=== PATIENT | male | born 1930 | race Caucasian/White ===

== ENCOUNTER 2018-08-07 08:34 | Inpatient (IN) | payer MEDICARE, OTHER ==
[~2018-08-07] VITALS: Ht 188 cm; Wt 117.8 kg
[~2018-08-07 08:34] MED LIST: ALEVE220 MG PO; BAYER CHEWABLE81 MG PO; CRESTOR5 MG PO; HYTRIN5 MG PO; MAXZIDE-25 MG T1 TAB PO
[2018-08-07] MEDS ORDERED: ZYLOPRIM300 MG PO (08:45)
[2018-08-07] MEDS ORDERED: METHENAMINE MA500 MG PO (08:46)
[2018-08-07] MEDS ORDERED: CO Q-10150 MG PO (08:46)
[2018-08-07] MEDS ORDERED: [UNRECOGNIZED DRUG - OTHER] PO (08:48)
[2018-08-07 09:31] VITALS: BP 122/74
[2018-08-07 09:44] LABS: APTT 33.8 SECONDS (22.8-39.4); INR 1.09 (0.85-1.17); PROTIME 13.6 SECONDS (11.6-15.0)
[2018-08-07 09:49] LABS: ALBUMIN 3.7 g/dL (3.4-5.0); ANION GAP 13.3 mmol/L (8-16); BILIRUBIN - TOTAL 0.59 mg/dL (0.2-1.3); CALCIUM 8.9 mg/dL (8.5-10.1); CARBON DIOXIDE 26.2 mmol/L (21.0-32.0); CREATININE - SERUM 1.3 mg/dL (0.6-1.3); POTASSIUM - SERUM 3.5 mmol/L (3.5-5.1); PROTEIN - SERUM 7.8 g/dL (6.4-8.2)
[2018-08-07 09:57] LABS: BASOPHILS 0.3 % (0-2); EOSINOPHILS 3.2 % (0-7); HEMATOCRIT 43.2 % (42.0-54.0); HEMOGLOBIN 14.7 g/dL (13.5-17.5); IMMATURE GRANULOCYTES 0.4 % (0-5); LYMPHOCYTES 11.1 % (15-50); MCH 30.6 pg (26.0-34.0); MCV 89.8 fL (80.0-100.0); MONOCYTES 11.4 % (2-11); NEUTROPHILS 73.6 % (40-80); RBC 4.81 10x6/uL (4.20-6.10); RDW 16.4 % (11.5-14.5); WBC 6.9 10x3/uL (4.8-10.8)
[2018-08-07 09:59] LABS: C-REACTIVE PROTEIN 2.4 mg/dL (0.0-0.9); MAGNESIUM - SERUM 2.1 mg/dL (1.8-2.4); PLATELET COUNT 63 10x3/uL (130-400); THYROID STIMULATING HORMONE 2.46 uIU/mL (0.36-3.74); TROPONIN-I 0.027 ng/mL (0.000-0.060)
--- NOTE | 2018-08-07 10:05 | NUR ---
URINE SAMPLE SENT TO THE LAB AT THIS TIME.
[2018-08-07 10:25] LABS: ANISOCYTOSIS OCC; PLATELET ESTIMATE DECREASED
[2018-08-07 10:30] LABS: APPEARANCE CLEAR (CLEAR); BILIRUBIN NEGATIVE (NEGATIVE); COLOR YELLOW (YELLOW); GLUCOSE NEGATIVE (NEGATIVE); KETONE NEGATIVE (NEGATIVE); NITRITE NEGATIVE (NEGATIVE); PROTEIN NEGATIVE (NEGATIVE); SPECIFIC GRAVITY 1.015 (1.005-1.020); UROBILINOGEN NORMAL (NORMAL)
--- NOTE | 2018-08-07 11:03 | NUR ---
PT ASSISTED WITH GHISLAINE-CARE AND CLOTHING CHANGE FOLLOWING EPISODE OF URINARY INCONTINENCE. PER PT'S , PT IS TYPICALLY NOT INCONTINENT.
[2018-08-07 11:07] VITALS: BP 147/77
--- NOTE | 2018-08-07 11:56 | NUR ---
PT GIVEN AHA LUNCH TRAY PER DIETARY ORDERS. SITTING UPRIGHT IN BED EATING. DENIES ANY NEEDS. FAMILY MEMBER AT BEDSIDE AND CALL LIGHT IN REACH, WILL CONTINUE TO MONITOR.
[2018-08-07 13:52] LABS: T4 THYROXIN - FREE 0.99 ng/dL (0.76-1.46); THYROID STIMULATING HORMONE 2.4 uIU/mL (0.36-3.74)
[2018-08-07 15:22] VITALS: BP 114/73
--- NOTE | 2018-08-07 15:45 | NUR ---
NEW PATIENT ADMIT FROM ER VIA STRETCHER AND HOSPITAL PERSONNEL. PATIENT ACCOMPANIED BY FAMILY. PATIENT IS AWAKE, ALERT AND ORIENTED X 3. PATIENT IS STABLE AND VSS. TELEMETRY APPLIED. PATIENT DENIES ANY NEEDS OR PAIN. WILL CONTINUE WITH PLAN OF CARE.
[2018-08-07 18:34] VITALS: BP 114/73; BMI 34.0
--- NOTE | 2018-08-07 19:46 | NUR ---
PT RESTING IN BED. BEDLOW AND CALL LIGHT IN REACH. PT SITTING WITH MOUTH OPEN. MOUTH BREATHER. PT ALERT TO NAME AND , HAS CONFUSION OF PLACE AND YEAR. SAID HE KNOWS WHERE HE IS BUT CANNOT THINK OF THE NAME, REORIENTED PT WILL CHECK ORIENTATION AGAIN TO SEE IF PT REMEMBERS. PT HAS NO S/S OF DISTRESS. PT UNABLE TO TELL NURSE HOW TO GET AHOLD OF NURSES. DEMONSTRATED TO PT. PT DEMONSTRATED BACK. PLACED ALARM ON BED, NAME AND DATE ON BOARD. PT WILL CALL FOR ASSIST WHEN NEEDED. WILL CPOC
[2018-08-07 20:00] VITALS: BP 126/75
--- NOTE | 2018-08-07 22:22 | NUR ---
NIGHT MEDICATIONS GIVEN. NORCO GIVEN FOR PAIN, PT STATES INCREASES WHEN MOVING. PT STILL ALERT TO NAME AND ONLY. UNABLE TO TELL PLACE OR YEAR. PT LEANING TO THE RIGHT. HAS SEVERE WEAKNESS. ABLE TO LIFT RIGHT LEG A COUPLE INCHES OFF OF BED. KEEPS MOUTH OPEN RIGHT SIDE OF MOUTH HAS NOTED SAGGING. PT COULD NOT TELL NURSE HOW TO CALL FOR ASSIST. ATTEMPTED TO REORIENTATE ONCE AGAIN. BED ALARM ON AND ACTIVE. NOURISHMENT WITHIN REACH. ASSISTED WITH REPOSITIONING IN BED. WILL CPOC
--- NOTE | 2018-08-08 01:02 | NUR ---
PT ASLEEP. RESP EVEN AND UNLABORED. MOUTH BREATHER, PILLOWS ON BOTH SIDES OF PT, HEELS RAISED. BEDLOW AND CALL LIGHT IN REACH. BED ALARM ON AND ACTIVE. WILL CPOC
--- NOTE | 2018-08-08 02:59 | NUR ---
NORCO GIVEN FOR BACK PAIN. ASSISTED WITH REPOSITIONING IN BED. PT BEDALARM ON AND ACTIVE. WILL CPOC
--- NOTE | 2018-08-08 04:06 | NUR ---
PT BED ALARM WENT OFF, PT SITTING ON SIDE OF BED. PT STATING HE NEEDS TO URINATE. ASSISTED PT WITH URINATING 225 DARK CLEAR URINE. CLEANED PT INCONT EPISODE LARGE AMOUNT, CHANGED PT INTO DRY GOWN. ASSISTED PT WITH 2 PERSON ASSIST TO HEAD OF BED, SEVERE WEAKNESS IN LOWER EXTREM. GAIT UNSTEADY. LEFT FOOT DID NOT RAISE UP FOR STEPS , PT BACK INTO BED. REORIENTED ON HOW TO CALL NURSES. PLACED BED ALARM ON, BEDLOW AND CALL LIGHT IN REACH. NOURISHMENT WITHIN REACH. WILL CPOC
[2018-08-08 04:30] VITALS: BP 131/68
--- NOTE | 2018-08-08 07:18 | HP ---
PATIENT: NICK GUNDERSON MEDICAL RECORD: [id number] ACCOUNT: [id number] LOCATION:[address] : 34 ADMISSION DATE: 08/07/18 PCP: TONA ISAAC MD HISTORY AND PHYSICAL EXAMINATION REASON FOR ADMISSION: Low back pain, leg weakness, and inability to walk. HISTORY OF PRESENT ILLNESS: The patient is an 88-year-old male with history of lumbar scoliosis and lumbar disc disease. Due to osteoarthritis and knee replacements, he has been relegated to a wheelchair and a walker for ambulation for the last several years. His daughter states that he was too much to care for at home, and on May 16, transferred to [facility]. He has been taking care of himself there, performing most of his ADLs. He states that, about 2 days ago, he had increasing trouble with his low back pain and more trouble with his lower legs. In fact, for the last 2 nights, he has had to lay in the bed with his legs over the side of the bed and unable to raise them. He has had no new bowel or bladder incontinence or retention. Because he is unable to ambulate, he was brought to the ED. He had a fall 2 months ago at [facility], but incurred no injury to his knowledge. He states his low back hurts lying down or sitting up and the pain will radiate into his buttocks and upper thighs and his thighs feel weak. PAST MEDICAL HISTORY: Osteoarthritis, morbid obesity, essential hypertension, hyperlipidemia, BPH, history of gout, history of shingles, had UTI with sepsis, varicose veins of the lower extremities, and hematuria with cystoscopy performed showing benign ulcer in his bladder. History of kidney stones, history of CAD with failed PTCA, history of MRSA, cataracts, mild cognitive impairment, and remote lacunar infarct. PAST SURGICAL HISTORY: Right carpal tunnel release, rods placed in his left foot due to fracture, cataract extraction bilaterally, history of heart cath with failed PTCA, and tonsillectomy. He has had bilateral knee replacements. He has had cystoscopy and bilateral retrogrades. SOCIAL HISTORY: Former smoker of one pack a day for 20 years. He has not smoked since 1977. Denies alcohol or oral tobacco use. FAMILY HISTORY: Father of heart disease. One sister had diphtheria and hyperlipidemia. HOME MEDICATIONS: Dyazide one q.a.m., Lamisil AT 1% topical cream to groin rash daily, methenamine mandelate 0.5 gram tablet one tablet by mouth 2 times a day, Ocuvite Vitamin one p.o. daily, aspirin 81 mg a day, CoQ10 100 mg a day, terazosin 5 mg capsule at bedtime, allopurinol 300 mg a day, Aleve 200 mg p.o. b.i.d. p.c. REVIEW OF SYSTEMS: GENERAL: No recent fever, fatigue, or weight change. HEENT: No recent visual change, sinus congestion, or sore throat. He does wear glasses to read and has some trouble with his hearing. RESPIRATORY: He has mild shortness of breath when he exerts himself little. He has had no recent cough, congestion, or hemoptysis. CARDIAC: Denies palpitations, chest pain, or peripheral vascular issues. GASTROINTESTINAL: No nausea, vomiting, change in stools, blood per rectum, or reflux. HISTORY AND PHYSICAL [id number] NICK GUNDERSON GENITOURINARY: Nocturia once nightly and slow voiding stream. No recent hematuria. MUSCULOSKELETAL: He has chronic arthralgias in his knees and hips, particularly his lumbar spine with standing or lying flat, will radiate into his buttocks and upper thighs bilaterally. ENDOCRINE: Denies polyuria, polydipsia, heat or cold intolerance. NEUROLOGIC: Remote history of lacunar infarct in the right basal ganglia. PSYCHIATRIC: Denies depression and anxiety. INTEGUMENT: No recent rash or itching. PHYSICAL EXAMINATION: VITAL SIGNS: His temperature is 97.5 degrees Fahrenheit orally, pulse is 52-100 and regular, respirations are 18, and blood pressure 139/72 with sat of 93% on room air. GENERAL: The patient is alert and oriented to person and place, but not time. HEENT: Eyes are clear. He has lens implants in both eyes. Oropharynx unremarkable. NECK: No bruits or masses. CHEST: Distant breath sounds without wheeze or rales. HEART: Irregular rate without gallop. He has II/ aortic murmur systolically. ABDOMEN: Morbidly obese. No masses palpable. GENITOURINARY: Shows rash in the groin bilaterally, in the crural areas. RECTAL: Deferred. EXTREMITIES: He has some slight atrophy of his quadriceps bilaterally. He has 2+ to 3+ pretibial edema to the knees bilaterally. NEUROLOGIC: Oriented to person and place, but not time. Slight decrease to quadriceps flexion bilaterally. Reflexes 1+ symmetrically. Gait was not tested. Straight leg raise is negative bilaterally. LABORATORIES: White count 6900 with H&H of 14.7 and 43.2 and platelet count 63,000. Potassium is 3.5, BUN is 31, creatinine 1.3, glucose 108, and lipase 873. Urinalysis is negative. INR is 1.09. DIAGNOSTIC DATA: CT of the head reveals old right lacunar infarct. No evidence of hemorrhage. Severe cerebral volume loss with enlarged ventricles and sulci. No fractures are appreciated. Lumbar spine CT showed anterior wedging of T11 through L2, old. Atherosclerotic changes of abdominal aorta and iliac arteries. 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 Multilevel degenerative changes are seen throughout the lumbar spine with [id number] spinal canal narrowing and neuroforaminal narrowing. Chest x-ray shows no acute cardiopulmonary disease. EKG shows atrial fibrillation with controlled rate. ASSESSMENT: 1. 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 2. Gait instability and abnormality. 3. Quadriceps weakness, probably due to lumbar stenosis. 4. Atrial fibrillation, unknown onset. 5. Osteoarthritis. 6. Dementia. 7. Remote lacunar infarct. 8. Hyperlipidemia. 9. Thrombocytopenia. HISTORY AND PHYSICAL [id number] NICK GUNDERSON PLAN: The patient has been resistant to physical therapy in the past, but will consider that now. His daughter reinstates his DNR status. We will have neurosurgical consult concerning his back issues and start PT. We will get an echocardiogram concerning his AFib. Currently, his rate is not uncontrolled. He also has thrombocytopenia. We will stop aspirin. Further workup pending clinical course. TRANSINT:[id number] Voice Confirmation ID: [id number] DOCUMENT ID: [id number] TONA ISAAC MD at 0718 CC: [id number] DICTATION DATE: 08/07/18 1317 SOCK FOLDER: 08/07/18 1424 [facility] [address]
--- NOTE | 2018-08-08 07:39 | NUR ---
ROUNDING DONE WITH PATIENT SITTING ON SIDE OF BED WITH AT BEDSIDE. VERY LARGE PATIENT. ON HEART MONITOR SHWOING UCAF, HR 115. ON ROOM AIR. RIGHT FA PIV SEEN WITH SALINE LOCK. IN REPORT PATIENT IS ALERT TO NAME ONLY. DNR CODE STATUS. WILL MONITOR FOR NEEDS AND SAFETY.
[2018-08-08 08:20] LABS: BASOPHILS 0.2 % (0-2); EOSINOPHILS 4.5 % (0-7); HEMATOCRIT 41.2 % (42.0-54.0); HEMOGLOBIN 13.9 g/dL (13.5-17.5); IMMATURE GRANULOCYTES 0.5 % (0-5); MCH 30.4 pg (26.0-34.0); MCHC 33.7 g/dL (31.0-37.0); MCV 90.2 fL (80.0-100.0); MEAN PLATELET VOLUME 11.9 fL (7.4-10.4); MONOCYTES 11.6 % (2-11); NEUTROPHILS 71.2 % (40-80); PLATELET COUNT 63 10x3/uL (130-400); RBC 4.57 10x6/uL (4.20-6.10); RDW 16.3 % (11.5-14.5); WBC 6.3 10x3/uL (4.8-10.8)
[2018-08-08 08:30] VITALS: BP 104/71
[2018-08-08 08:35] LABS: ANION GAP 12.9 mmol/L (8-16); CALCIUM 8.8 mg/dL (8.5-10.1); CARBON DIOXIDE 26.7 mmol/L (21.0-32.0); CREATININE - SERUM 1.1 mg/dL (0.6-1.3); POTASSIUM - SERUM 3.6 mmol/L (3.5-5.1)
--- NOTE | 2018-08-08 09:40 | NUR ---
DYAZIDE 37.5/25 TAB HELD DUE TO BLOOD PRESSURE OF 104/71.
--- NOTE | 2018-08-08 12:20 | NUR ---
PATIENT IS ADAMENT ON STANDING UP. WITH TWO PERSON ASSIT, WE STAND HIM UP AND PLACE HIM IN CHAIR WITH CHAIR ANNABELLE MAT ALARM IN USE. TURNED ON AND SET. RECLINED WITH FEET UP.
[2018-08-08 12:30] VITALS: BP 151/77
[2018-08-08 13:10] VITALS: Ht 188 cm; Wt 117.8 kg
--- NOTE | 2018-08-08 13:53 | NUR ---
ASSISTED X 2 MAX TO BED. ANNABELLE ALARM ON AND IN USE. BED ALARM IS ALSO SET.
--- NOTE | 2018-08-08 15:03 | NUR ---
APPLIED CALMOSEPTINE TO GROIN AREA RELATED TO REDNESS AND EXCORIATION TO BILATERAL GROIN. PT STATED THAT FEELS BETTER.
[2018-08-08 16:30] VITALS: BP 118/86
--- NOTE | 2018-08-08 19:21 | NUR ---
PT IN BED. ALERT TO SELF ONLY. DENIES NEEDS AT THIS TIME.
[2018-08-08 20:08] VITALS: BP 126/75
--- NOTE | 2018-08-09 00:34 | NUR ---
ENTERED ROOM TO THE SOUND OF BED ALARM. PT SITTING UP ON SIDE OF BED. ASSISTED PT BACK IN TO BED. PT DENIES NEEDS AT THIS TIME.
[2018-08-09 00:45] VITALS: BP 143/87
[2018-08-09 03:49] VITALS: BP 119/75
[2018-08-09 04:21] LABS: BASOPHILS 0 % (0-2); EOSINOPHILS 0 % (0-7); HEMATOCRIT 39.4 % (42.0-54.0); HEMOGLOBIN 13.4 g/dL (13.5-17.5); IMMATURE GRANULOCYTES 0.5 % (0-5); LYMPHOCYTES 11.7 % (15-50); MCH 30.2 pg (26.0-34.0); MCV 88.9 fL (80.0-100.0); MEAN PLATELET VOLUME 12.1 fL (7.4-10.4); MONOCYTES 5.1 % (2-11); NEUTROPHILS 82.7 % (40-80); PLATELET COUNT 70 10x3/uL (130-400); RBC 4.43 10x6/uL (4.20-6.10)
[2018-08-09 04:25] LABS: WBC 4.1 10x3/uL (4.8-10.8)
[2018-08-09 04:33] LABS: CALC OSMOLALITY 279 mosm/kg (275-300); CARBON DIOXIDE 25.2 mmol/L (21.0-32.0); CHLORIDE - SERUM 102 mmol/L (98-107); POTASSIUM - SERUM 3.8 mmol/L (3.5-5.1); SODIUM 136 mmol/L (136-145); UREA NITROGEN 26 mg/dL (7-18); eGFR NON AFRICAN AMERICAN 75 mL/min (90-120)
[2018-08-09 04:37] LABS: GLUCOSE 153 mg/dL (74-106)
[2018-08-09 08:31] VITALS: BP 137/76
[2018-08-09 11:30] VITALS: BP 133/79
[2018-08-09 16:34] VITALS: BP 133/87
--- NOTE | 2018-08-09 19:30 | NUR ---
AROUSES WHEN I ENTERED ROOM. CONFUSED ORIENTED TO NAME ONLY BED ALARM ON BED IS LOW SRX3 AND CALL LIGHT IN PT HAND ATTEMPTS MADE TO REORIENTATE AND EDUCATE. SKIN WARM AND DRY LCTA BOWEL SOUNDS X4
[2018-08-09 20:14] VITALS: BP 138/85
[2018-08-10 03:49] VITALS: BP 144/83
--- NOTE | 2018-08-10 04:27 | NUR ---
I have reviewed this patient and I concur with the Shift Assessment completed by the Licensed Practical Nurse today this shift.
--- NOTE | 2018-08-10 05:29 | NUR ---
RUN OF VTACH REPORTED BY BOX FOLDING MACHINE OPERATOR PT NOW AT 65 SR.....ALERT AND DENIES PAIN SUPINE IN BED...SKIN WAEM AND DRY
--- NOTE | 2018-08-10 07:31 | NUR ---
PT AWAKE AND CONFUSED, AT BEDSIDE. PT CLAIMS HE'S BEEN SEEING COMIC STRIPS ON THE [place] AND WENT INTO A STORY ABOUT "INDIANS DIEING", USURE WHAT HE WAS TALKING ABOUT. PLESANTLY CONFUSED. NO COMPLAINTS/CONCERNS/QUESTIONS VIOCED AT THIS TIME. CL IN REACH, SRX2, BED ALARM IN PLACE AND ON.
[2018-08-10 10:00] VITALS: BP 137/83
--- NOTE | 2018-08-10 10:47 | NUR ---
I have reviewed this patient and I concur with the Shift Assessment completed by the Licensed Practical Nurse today this shift.
--- NOTE | 2018-08-10 10:53 | NUR ---
rehab prescreen: this pt has commerical insurance nd will require a prior auth before able to accept. will submit and monitor til hearing back from insurance. thank you for this eval. she bah lpn clinical liasion
--- NOTE | 2018-08-10 11:21 | NUR ---
PT CALLED ME INTO THE ROOM TO LET ME KNOW HE HAD MY MAIL READY. STILL PLESANTLY CONFUSED. NO COMPLAINTS/CONCERNS, JUST WANTED ME TO TAKE HIS NEWSPAPER. CL IN REACH, BED ALARM ON, SRX2.
[2018-08-10 16:43] VITALS: BP 147/88
[2018-08-10 17:14] VITALS: BP 150/81
--- NOTE | 2018-08-10 17:58 | NUR ---
PT CAME BY, PT IS MUCH MORE CALM AT THIS TIME AND EATING HIS SUPPER. BED ALARM AND CHAIR ALARM ON. CL IN REACH, SRXX2.
--- NOTE | 2018-08-10 19:52 | NUR ---
EVENING ROUNDS COMPLETED. REPORT RECEIVED. PT SITTING UP IN BED WITH EYES OPEN, RR EVEN AND UNLABORED. BED IN LOW POSITION. ANNABELLE ALARM TURNED ON. INTRODUCED SELF TO PT. PROVIDED PT EDUCATION ON USE OF CALL LIGHT AND INSTRUCTED PT TO PRESS CALL LIGHT WHEN NEEDING TO AMBULATE. PT STATES UNDERSTANDING. REESTABLISHED PT TELEMETRY LEADS, CURRENTLY RUNNING 68 NORMAL SINUS. PT DENIES FURTHER NEEDS AT THIS TIME. EMPTIED URINAL, 300 MLS CONCENTRATED YELLOW OUTPUT. NO S/S OF DISTRESS NOTED. CALL LIGHT IN REACH. WILL CTM.
[2018-08-10 19:55] VITALS: BP 156/93
[2018-08-10 23:49] VITALS: BP 141/79
[2018-08-11 03:43] VITALS: BP 151/80
--- NOTE | 2018-08-11 04:08 | NUR ---
I have reviewed this patient and I concur with the Shift Assessment completed by the Licensed Practical Nurse today this shift.
[2018-08-11 05:55] LABS: BASOPHILS 0 % (0-2); EOSINOPHILS 0 % (0-7); HEMATOCRIT 39.8 % (42.0-54.0); HEMOGLOBIN 13.6 g/dL (13.5-17.5); IMMATURE GRANULOCYTES 0.4 % (0-5); MCH 30.3 pg (26.0-34.0); MCHC 34.2 g/dL (31.0-37.0); MCV 88.6 fL (80.0-100.0); MONOCYTES 5.1 % (2-11); NEUTROPHILS 85.5 % (40-80); RBC 4.49 10x6/uL (4.20-6.10); RDW 16.3 % (11.5-14.5); WBC 5.1 10x3/uL (4.8-10.8)
[2018-08-11 06:00] LABS: PLATELET COUNT 126 10x3/uL (130-400)
--- NOTE | 2018-08-11 07:34 | NUR ---
ROUNDING DONE WITH PATIENT ALERT TO SELF AND THINKS HE IS [place], I TOLD HIM CLOSE BUT HE IS IN [place] [employer] [place]. GLASSES ON BEDSIDE TABLE. OBESE ABDOMEN WITH SOME EXCORATION UNDER ABDOMINAL FOLD. ANNABELLE MAT ALARM IS ON AND IN USE. RIGHT FA PIV SEEN WITH SALINE LOCK, ORANGE SWAB CAP IN USE. ON HEART MOITOR SHOWING SR W OCC PAC AND MULTI FOCAL PVC, HR 59. ON ROOM AIR. DNR CODE STATUS. WILL MONITOR.
[2018-08-11 07:38] VITALS: BP 152/78
[2018-08-11 07:55] LABS: CALC OSMOLALITY 280 mosm/kg (275-300); CALCIUM 8.8 mg/dL (8.5-10.1); CARBON DIOXIDE 22.8 mmol/L (21.0-32.0); CHLORIDE - SERUM 102 mmol/L (98-107); GLUCOSE 114 mg/dL (74-106); POTASSIUM - SERUM 4.5 mmol/L (3.5-5.1); SODIUM 137 mmol/L (136-145); UREA NITROGEN 30 mg/dL (7-18); eGFR NON AFRICAN AMERICAN 75 mL/min (90-120)
--- NOTE | 2018-08-11 11:23 | NUR ---
SITTING UP IN CHAIR AT THIS TIME. RESTING WITH EYES CLOSED, RESP ARE EVEN. WILL MONITOR.
[2018-08-11 11:56] VITALS: BP 115/67
--- NOTE | 2018-08-11 13:26 | NUR ---
PATIENT IS BACK IN BED PAST WORKING WITH THERAPY. ANNABELLE MAT ALARM IS ON.
[2018-08-11 16:14] VITALS: BP 136/73
--- NOTE | 2018-08-11 17:33 | NUR ---
AT BEDSIDE WITH PATIENT SITTING ON SIDE OF BED. DENIES NEEDS AT THIS TIME.
[2018-08-11 20:00] VITALS: BP 122/63
--- NOTE | 2018-08-11 21:50 | NUR ---
EVENING ROUNDS COMPLETED. REPORT RECEIVED. PT SITTING UP IN BED WITH EYES OPEN, RR EVEN AND UNLABORED. BED IN LOW POSITION. NO S/S OF DISTRESS NOTED. CALL LIGHT IN REACH. WILL CTM.
[2018-08-12] VITALS: BP 155/83
--- NOTE | 2018-08-12 03:22 | NUR ---
I have reviewed this patient and I concur with the Shift Assessment completed by the Licensed Practical Nurse today this shift.
[2018-08-12 04:00] VITALS: BP 150/84
[2018-08-12 06:34] LABS: ALBUMIN 3.2 g/dL (3.4-5.0); ANION GAP 13.5 mmol/L (8-16); BILIRUBIN - TOTAL 0.4 mg/dL (0.2-1.3); CALCIUM 8.6 mg/dL (8.5-10.1); CARBON DIOXIDE 27.7 mmol/L (21.0-32.0); CREATININE - SERUM 1.1 mg/dL (0.6-1.3); POTASSIUM - SERUM 4.2 mmol/L (3.5-5.1); PROTEIN - SERUM 6.9 g/dL (6.4-8.2)
--- NOTE | 2018-08-12 06:56 | NUR ---
ROUNDING DONE WITH PATIENT LAYING IN BED, AWAKE WITH AT BEDSIDE. ANNABELLE MAT ALARM IS ON AND IN USE. DNR CODE STATUS. ON ROOM AIR. ON HEART MONITOR SHOWING SR, HR 50. RIGHT FA PIV SEEN WITH SALINE LOCK, ORANGE SWAB CAP IN USE. GLASSES ON. WILL CPOC.
[2018-08-12 07:20] LABS: HEMATOCRIT 41.8 % (42.0-54.0); HEMOGLOBIN 13.9 g/dL (13.5-17.5); LYMPHOCYTES 11.9 % (15-50); MCH 30.2 pg (26.0-34.0); MCHC 33.3 g/dL (31.0-37.0); MEAN PLATELET VOLUME 13.1 fL (7.4-10.4); NEUTROPHILS 81.7 % (40-80); PLATELET COUNT 141 10x3/uL (130-400); RDW 16.8 % (11.5-14.5); WBC 4.6 10x3/uL (4.8-10.8)
[2018-08-12 07:25] LABS: MCV 90.9 fL (80.0-100.0)
[2018-08-12 07:54] VITALS: BP 142/91
[2018-08-12 11:55] VITALS: BP 120/68
--- NOTE | 2018-08-12 12:17 | NUR ---
ASSSITED PATIENT WITH URINAL. VOIDS 350 CC CLEAR YELLOW URINE. ON ANNABELLE MAT ALARM IN CHAIR, ON AND SET.
--- NOTE | 2018-08-12 14:22 | NUR ---
ASSSITED BACK TO BED WITH ANNABELLE MAT ALARM ON AND IN USE. CALL LIGHT IN LAP.
[2018-08-12 17:02] VITALS: BP 156/87
--- NOTE | 2018-08-12 19:29 | NUR ---
PATIENT SITTING UP IN CHAIR WITH ANNABELLE ALARM ON. NO COMPLAITNS AT THIS TIME. NO DISTRESS NOTED.
[2018-08-12 20:00] VITALS: BP 107/65
[2018-08-13] VITALS: BP 120/72
--- NOTE | 2018-08-13 01:28 | NUR ---
PATIENT LAYING IN BED, EYES CLOSED, CHEST RISING AND FALLING. NO DISTRESS NOTED.
--- NOTE | 2018-08-13 02:20 | NUR ---
I have reviewed this patient and I concur with the Shift Assessment completed by the Licensed Practical Nurse today this shift.
[2018-08-13 04:00] VITALS: BP 156/82
[2018-08-13 06:18] LABS: ALBUMIN 3.1 g/dL (3.4-5.0); ANION GAP 12.3 mmol/L (8-16); BILIRUBIN - TOTAL 0.38 mg/dL (0.2-1.3); CALCIUM 8.5 mg/dL (8.5-10.1); CARBON DIOXIDE 26.7 mmol/L (21.0-32.0); CREATININE - SERUM 1.2 mg/dL (0.6-1.3); PROTEIN - SERUM 6.7 g/dL (6.4-8.2)
[2018-08-13 06:49] LABS: BASOPHILS 0 % (0-2); EOSINOPHILS 0 % (0-7); HEMOGLOBIN 13.9 g/dL (13.5-17.5); IMMATURE GRANULOCYTES 1.6 % (0-5); LYMPHOCYTES 14.7 % (15-50); MCH 30.6 pg (26.0-34.0); MCHC 34.8 g/dL (31.0-37.0); MEAN PLATELET VOLUME 12.4 fL (7.4-10.4); MONOCYTES 7.2 % (2-11); NEUTROPHILS 76.5 % (40-80); RBC 4.54 10x6/uL (4.20-6.10); RDW 16.1 % (11.5-14.5)
[2018-08-13 07:06] LABS: MCV 88.1 fL (80.0-100.0); PLATELET COUNT 184 10x3/uL (130-400)
--- NOTE | 2018-08-13 07:18 | NUR ---
MORNING ROUNDS MADE. PT RESTING COMFORTABLY. DENIES FURTHER NEEDS AT THIS TIME. WILL CTM.
[2018-08-13 08:07] VITALS: BP 144/90
[2018-08-13 08:17] LABS: T4 THYROXIN - FREE 0.84 ng/dL (0.76-1.46); THYROID STIMULATING HORMONE 1.22 uIU/mL (0.36-3.74)
--- NOTE | 2018-08-13 08:45 | NUR ---
VITALS STABLE. PT SITTING UP ON SIDE OF BED. TOOK MEDS WITHOUT DIFFICULTY. AT BEDSIDE. TELE LEADS REAPPLIED. DENIES FURTHER CONERNS AT THIS TIME. WILL CTM.
--- NOTE | 2018-08-13 09:04 | NUR ---
PT ASSISTED TO CHAIR AT BEDSIDE. BEDSIDE TABLE WITHIN REACH. ANNABELLE PAD IN CHAIR, ON AND WORKING PROPERLY. WILL CTM.
[2018-08-13 11:59] VITALS: BP 127/55
--- NOTE | 2018-08-13 13:54 | NUR ---
Nutrition follow-up: Diet: Low sodium PO intake 75-100% of most meals Labs reviewed Wt: 263# +BM PO intake good at this time RDN following.
--- NOTE | 2018-08-13 14:05 | NUR ---
I have reviewed this patient and I concur with the Shift Assessment completed by the Licensed Practical Nurse today this shift.
--- NOTE | 2018-08-13 14:14 | NUR ---
PT SITTING UP IN CHAIR AT BEDSIDE. ANNABELLE ALARM SOUNDING. PT PLAYING WITH ANNABELLE CORD STATING "I NEED TO UNTANGLE THIS" PT CONFUSED. ASSISTED PT UP TO BEDSIDE COMMODE X 2 ASSIST. NO FURTHER CONCERNS AT THIS TIME. WILL CTM.
--- NOTE | 2018-08-13 15:35 | MORECARE ---
CASE MANAGEMENT DISCHARGE SUMMARY PATIENT: NICK GUNDERSON UNIT: [id number] ADM DATE: 08/07/18 AGE: 88 : 32 SEX: M ROOM/BED: D.2136 AUTHOR: JASS HARRIS PHYSICIAN: REFERRING PHYSICIAN: TONA ISAAC MD DATE OF SERVICE: 08/13/18 Discharge Plan Patient Name: NICK GUNDERSON [facility] [facility] 1930 Planned Disposition: Inpatient Rehab Anticipated Discharge Date: 08/14/18 Discharge Date: Expected LOS: 7 Initial Reviewer: [email or web address] Initial Review Date: 08/13/2018 Generated: 08/13/18 4:35 pm DCPIA - Discharge Planning Initial Assessment Updated by [email or web address]: Chetan Barrios on 08/13/18 3:31 pm * Is the patient Alert and Oriented? Yes * How many steps to enter\exit or inside your home? 30 * PCP DR. ISAAC * Pharmacy [facility] ? PATIENT IS UNSURE * Preadmission Environment Home with Family * ADLs Independent * Equipment Rolling Walker * Other Equipment ROLLING WALKER WITH SEAT NO MEDICAL EQUIPMENT PROVIDER PREFERENCE * List name and contact numbers for known caregivers / representatives who currently or will assist patient after discharge: MATIAS BETH, SIGNIFICANT OTHER, * Verbal permission to speak to the caregivers and representatives has been obtained from the patient. Yes * Community resources currently utilized None * Please name any agencies selected above. NONE * Additional services required to return to the preadmission environment? Yes * Can the patient safely return to the preadmission environment? Yes * Has this patient been hospitalized within the prior 30 days at any hospital? No Patient Name: NICK GUNDERSON Page [id number] at 1535 All edits/amendments must be made on the electronic document DICTATION DATE: 08/13/181533 DYNAMICS AX CONSULTANT: JUD 08/13/181533 RPT#: [id number] DC DATE: STATUS: ADM IN [facility] [address] [place] [address] END OF REPORT
--- NOTE | 2018-08-13 15:54 | MORECARE ---
CASE MANAGEMENT DISCHARGE SUMMARY PATIENT: NICK GUNDERSON UNIT: [id number] ADM DATE: 08/07/18 AGE: 88 : 32 SEX: M ROOM/BED: D.8656 AUTHOR: JASS HARRIS PHYSICIAN: REFERRING PHYSICIAN: TONA ISAAC MD DATE OF SERVICE: 08/13/18 Discharge Plan Patient Name: NICK GUNDERSON [facility] [facility] 1930 Planned Disposition: Inpatient Rehab Anticipated Discharge Date: 08/14/18 Discharge Date: Expected LOS: 7 Initial Reviewer: [email or web address] Initial Review Date: 08/13/2018 Generated: 08/13/18 4:54 pm Comments DCP- Discharge Planning Updated by [email or web address]: Chetan Barrios on 08/13/18 2:[address] Patient Name: NICK GUNDERSON Encounter No: [id number] : 1930 Primary Insurance: MEDICARE A & B Anticipated DC Date: 08-14-2018 Planned Disposition: Inpatient Rehab External Planned Provider: [facility] DISCHARGE PLANNING NOTES: CM RECEIVED INPATIENT REHAB PRESCREENING ORDER, MET WITH PT IN ROOM TO DISCUSS DISCHARGE PLANNING AND NEEDS. PT REPORTS LIVING AT HOME INDEPENDENTLY WITH ; THEY HAVE SOLD THERE HOME AND WILL BE MOVING TO AN APARTMENT TOGETHER SOON. PT HAS ROLLING WALKER WITH A SEAT AND NO MEDICAL EQUIPMENT PROVIDER PREFERENCE. PT HAS NO OUTSIDE SERVICES ASSISTING IN THE HOME. CM DISCUSSED AVAILABILITY OF HOME HEALTH, REHAB SERVICES AND MEDICAL EQUIPMENT. PT WANTS REHAB AND WOULD LIKE [facility] HE HAS BEEN THERE BEFORE WITH GOOD RESULTS. PT REPORTS HIS WILL PICK HIM UP FOR DISCHARGE HOME. IMPORTANT MESSAGE FROM MEDICARE PROVIDED AND EXPLAINED. CM SPOKE TO TYL[facility] OF INPATIENT REHAB, THEY PLAN TO ACCEPT PT WHEN MEDICALLY STABLE FOR DISCHARGE. FOR DISCHARGE TO [facility] IN[facility]IENT REHAB, CALL REHAB WHEN DISCHARGE ORDER IS RECEIVED; REHAB WILL CALL MED 2 NURSE WHEN BED IS READY AND THEY ARE READY TO ACCEPT PT AND REPORT. Chetan Barrios, CASE MANAGEMENT DCPIA - Discharge Planning Initial Assessment Updated by [email or web address]: Chetan Barrios on 08/13/18 3:31 pm * Is the patient Alert and Oriented? Yes * How many steps to enter\exit or inside your home? 30 * PCP DR. ISAAC * Pharmacy [facility] ? PATIENT IS UNSURE * Preadmission Environment Home with Family * ADLs Independent * Equipment Rolling Walker * Other Equipment ROLLING WALKER WITH SEAT NO MEDICAL EQUIPMENT PROVIDER PREFERENCE * List name and contact numbers for known caregivers / representatives who currently or will assist patient after discharge: MATIAS BETH, SIGNIFICANT OTHER, * Verbal permission to speak to the caregivers and representatives has been obtained from the patient. Yes * Community resources currently utilized None * Please name any agencies selected above. NONE * Additional services required to return to the preadmission environment? Yes * Can the patient safely return to the preadmission environment? Yes * Has this patient been hospitalized within the prior 30 days at any hospital? No Coverage Notice Reviewer: [email or web address] Tj Barrios Notice Issued Date-Time: 08/13/2018 9:05 Notice Type: IM Discharge Notice Notice Delivered To: Patient Relationship to Patient: Coating Manager Name: Delivery Method: HAND - Hand Delivered Bebe Days: Prior Verbal Notification: Recipient Understood Notice: Yes Recipient Signature: Yes Med Rec Note Co-signed by Attending: Coverage Notice Comment: Last DP export: 08/13/18 2:35 p Patient Name: NICK GUNDERSON Page [phone] at 1554 All edits/amendments must be made on the electronic document DICTATION DATE: 08/13/181552 PERSONNEL CLERK: JUD 08/13/181552 RPT#: [id number] DC DATE: STATUS: ADM IN [facility] [address] [place] [address] END OF REPORT
--- NOTE | 2018-08-13 16:17 | NUR ---
Rehab Note- Have been on the phone off & on today with [employer] attempting to verify benefits, have spoken to 4 different people with [employer] and have found that the patietn only has "MES product" of [employer] which is basically a supplemental secondary insurance and that the patient has some other primary insurance. Have spoken with Ju in the business office to investigate this, she has verified and returned call back that the patient does have "traditional" Medicare benefits with [employer] being a secondary. Spoke with ALCON Newman to inform him of the patient's inpatient acute rehab benefits. Will follow at this time. Thank you for this referral! Wendy Enriquez RN CLinical Liaison, [facility] Rehab
[2018-08-13 16:54] VITALS: BP 120/77
--- NOTE | 2018-08-13 19:39 | NUR ---
REPORT RECIEVED AND ROUNDING COMPLETE. PT SITTING UP IN RECLINER, PT CONFUSED HE ASKED ME TO TURN OFF THE WHITE BOARD IN HIS ROOM. PT HAS A ANNABELLE ALARM ON IN HIS CHAIR. TOLD PT TO USE CALL LIGTH WHEN HE IS READY TO GET INTO BED AND I WILL COME AND ASSIST HIM. CALL LIGHT ON BED WITHIN REACH TO PT.
[2018-08-13 20:00] VITALS: BP 163/91
[2018-08-14] VITALS: BP 138/89
--- NOTE | 2018-08-14 02:42 | NUR ---
I have reviewed this patient and I concur with the Shift Assessment completed by the Licensed Practical Nurse today this shift.
[2018-08-14 04:00] VITALS: BP 170/89
--- NOTE | 2018-08-14 04:26 | NUR ---
PT LAYING IN BED. SUPINE POSITON BED AT A 30% HOB. NO S/SX OF DISTRESS, BREATHING EVEN AND UNLABORED. CALL LIGHT WITHIN REACH AND BED IN LOWEST POSITON. ANNABELLE ALARM ON.
[2018-08-14 04:42] LABS: BASOPHILS 0 % (0-2); EOSINOPHILS 0.2 % (0-7); HEMATOCRIT 43.1 % (42.0-54.0); HEMOGLOBIN 15.1 g/dL (13.5-17.5); IMMATURE GRANULOCYTES 1.8 % (0-5); LYMPHOCYTES 17.8 % (15-50); MCH 31.1 pg (26.0-34.0); MCV 88.7 fL (80.0-100.0); MEAN PLATELET VOLUME 11.7 fL (7.4-10.4); MONOCYTES 10.7 % (2-11); NEUTROPHILS 69.5 % (40-80); PLATELET COUNT 193 10x3/uL (130-400); RBC 4.86 10x6/uL (4.20-6.10); RDW 15.8 % (11.5-14.5); WBC 6.1 10x3/uL (4.8-10.8)
[2018-08-14 05:11] LABS: ALBUMIN 3.1 g/dL (3.4-5.0); ANION GAP 9.2 mmol/L (8-16); BILIRUBIN - TOTAL 0.45 mg/dL (0.2-1.3); CALCIUM 8.7 mg/dL (8.5-10.1); CREATININE - SERUM 1.2 mg/dL (0.6-1.3); POTASSIUM - SERUM 4.2 mmol/L (3.5-5.1); PROTEIN - SERUM 6.7 g/dL (6.4-8.2)
[2018-08-14 07:34] VITALS: BP 146/92
[2018-08-14 11:52] VITALS: BP 105/74
[2018-08-14] MEDS ORDERED: MEDROL DOSE PACK4 MG PO (13:05)
[2018-08-14] MEDS ORDERED: PEPCID PO (13:05)
[2018-08-14] MEDS ORDERED: BETAPACE 80 MG80 MG PO (13:05)
--- NOTE | 2018-08-14 14:01 | MORECARE ---
CASE MANAGEMENT DISCHARGE SUMMARY PATIENT: NICK GUNDERSON UNIT: [id number] ADM DATE: 08/07/18 AGE: 88 : 32 SEX: M ROOM/BED: D.2136 AUTHOR: JASS HARRIS PHYSICIAN: REFERRING PHYSICIAN: TONA ISAAC MD DATE OF SERVICE: 08/14/18 Discharge Plan Patient Name: NICK GUNDERSON Facility: [facility]:[place] : 1930 Planned Disposition: Inpatient Rehab Anticipated Discharge Date: 08/14/18 Discharge Date: Expected LOS: 7 Initial Reviewer: [id number] Initial Review Date: 08/13/2018 Generated: 08/14/18 3:01 pm Comments DCP- Discharge Planning Updated by [id number]: Chetan Barrios on 08/14/18 1:[address] Patient Name: NICK GUNDERSON Encounter No: [id number] : 1930 Primary Insurance: MEDICARE A & B Anticipated DC Date: 08-14-2018 Planned Disposition: Inpatient Rehab External Planned Provider: [facility] DCP follow-up note: CM SPOKE TO [facility] OF INPATIENT REHAB, THEY PLAN TO ACCEPT PT TODAY FOR REHAB. PT NOTIFIED, IN AGREEMENT WITH DISCHARGE TO INPATIENT REHAB. RN CM HOUSE NOTIFIED NURSE FISHER OF DR. ISAAC'S OFFICE. DISCHARGE RECEIVED. CM NOTIFIED [facility] OF INPATIENT REHAB. [facility] IN[facility] TO CONTACT [facility] 2 NURSE WITH ROOM NUMBER WHEN READY TO ACCEPT PT AND NURSE REPORT. Chetan Barrios, ROYCE REAL DCP- Discharge Planning Updated by [email or web address]: Chetan Barrios on 08/13/18 2:[address] Patient Name: NICK GUNDERSON Encounter No: [id number] : 1930 Primary Insurance: MEDICARE A & B Anticipated DC Date: 08-14-2018 Planned Disposition: Inpatient Rehab External Planned Provider: [facility] IN[facility] DISCHARGE PLANNING NOTES: CM RECEIVED INPATIENT REHAB PRESCREENING ORDER, MET WITH PT IN ROOM TO DISCUSS DISCHARGE PLANNING AND NEEDS. PT REPORTS LIVING AT HOME INDEPENDENTLY WITH ; THEY HAVE SOLD THERE HOME AND WILL BE MOVING TO AN APARTMENT TOGETHER SOON. PT HAS ROLLING WALKER WITH A SEAT AND NO MEDICAL EQUIPMENT PROVIDER PREFERENCE. PT HAS NO OUTSIDE SERVICES ASSISTING IN THE HOME. CM DISCUSSED AVAILABILITY OF HOME HEALTH, REHAB SERVICES AND MEDICAL EQUIPMENT. PT WANTS REHAB AND WOULD LIKE [facility] HE HAS BEEN THERE BEFORE WITH GOOD RESULTS. PT REPORTS HIS WILL PICK HIM UP FOR DISCHARGE HOME. IMPORTANT MESSAGE FROM MEDICARE PROVIDED AND EXPLAINED. CM SPOKE TO [facility] OF INPATIENT REHAB, THEY PLAN TO ACCEPT PT WHEN MEDICALLY STABLE FOR DISCHARGE. FOR DISCHARGE TO [facility] INPATIENT RE[facility], CALL REHAB WHEN DISCHARGE ORDER IS RECEIVED; REHAB WILL CALL MED 2 NURSE WHEN BED IS READY AND THEY ARE READY TO ACCEPT PT AND REPORT. Chetan Barrios, CASE MANAGEMENT DCPIA - Discharge Planning Initial Assessment Updated by [id number]: Chetan Barrios on 08/13/18 3:31 pm * Is the patient Alert and Oriented? Yes * How many steps to enter\exit or inside your home? 30 * PCP DR. ISAAC * Pharmacy [facility] ? PATIENT IS UNSURE * Preadmission Environment Home with Family * ADLs Independent * Equipment Rolling Walker * Other Equipment ROLLING WALKER WITH SEAT NO MEDICAL EQUIPMENT PROVIDER PREFERENCE * List name and contact numbers for known caregivers / representatives who currently or will assist patient after discharge: MATIAS IGNACIA, SIGNIFICANT OTHER, * Verbal permission to speak to the caregivers and representatives has been obtained from the patient. Yes * Community resources currently utilized None * Please name any agencies selected above. NONE * Additional services required to return to the preadmission environment? Yes * Can the patient safely return to the preadmission environment? Yes * Has this patient been hospitalized within the prior 30 days at any hospital? No Coverage Notice Reviewer: [id number] - Chetan Barrios Notice Issued Date-Time: 08/13/2018 9:05 Notice Type: IM Discharge Notice Notice Delivered To: Patient Relationship to Patient: College Specialist Name: Delivery Method: HAND - Hand Delivered Bebe Days: Prior Verbal Notification: Recipient Understood Notice: Yes Recipient Signature: Yes Med Rec Note Co-signed by Attending: Coverage Notice Comment: Last DP export: 08/13/18 2:54 p Patient Name: NICK GUNDERSON Page [phone] at 1401 All edits/amendments must be made on the electronic document DICTATION DATE: 08/14/18 1400 CERTIFIED SUBSTANCE ABUSE COUNSELOR: DM 08/14/18 1400 RPT#: [id number] DC DATE: STATUS: ADM IN [facility] [address] [place] [address] END OF REPORT
[2018-08-14] MEDS ORDERED: SYSTANE NIGHTT3.5 GM EACH EYE (14:58)
--- NOTE | 2018-08-15 11:27 | EC ---
PATIENT:NICK GUNDERSON DATE OF SERVICE: 08/07/18 SEX: M MEDICAL RECORD: [id number] DATE OF : [birth year] LOCATION:D.M2 D.213 AGE OF PATIENT: 88 ADMISSION DATE: 08/07/18 REFERRING PHYSICIAN: INTERPRETING PHYSICIAN: DWAIN PEREA MD ECHOCARDIOGRAM REPORT ECHO CHARGES 4 ECHO COMPLETE Date: 08/07/18 CLINICAL DIAGNOSIS: A-FIB ECHOCARDIOGRAPHIC MEASUREMENTS (adult normal given) AC root (d.<3.7cm) 4.2 cm LV Septum d (<1.2 cm> 1.8 cm Valve Excursion 1.4 cm LV Septum (systole) 2.5 cm Left Atria (s.<4.0cm> 3.9 cm LVPW d(<1.2cm) 1.7 cm RV (d.<2.3cm) 2.1 cm LVPW (sytole) 2.3 cm LV diastole(<5.6CM) 5.2 cm MV E-F(>70mm/sec) cm LV systole 2.9 cm LVOT Diameter 2.1 cm MV exc.(>10mm) cm Est.ejection fraction (50-75%) % DOPPLER: LVIT cm/sec A 119 cm/sec E 42.0 cm/sec LA cm/sec RVSP mmHg LVOT 106 cm/sec AOP1/2T m/s Asc. Ao 140 cm/sec RVOT cm/sec RA cm/sec PA cm/sec AV Gradient Peak 7.9 mmHg AV Mean 3.9 mmHg AV Area 3.1 cm MV Gradient Peak 7.0 mmHg MV Mean 1.8 mmHg MV Area cm COMMENTS: Language Translator: 1 BRITNEY LOPEZOE Transfer Car Operator: 1 Dr. Perea TAPE# PACS Pericardial Effusion N DATE OF SERVICE: 08/07/2018 FINDINGS: 1. Left ventricular chamber size is within normal limits. Left ventricular systolic function is at lower limits of normal at 45% to 50%. 2. Left atrium, right atrium, and right ventricular chamber sizes are within normal limit. Left atrium measures 3.9 cm. 3. Valvular structures have normal structure and motion. 4. Doppler interrogation reveals only trace mitral regurgitation. No other valvular insufficiency or stenosis. ECHOCARDIOGRAM REPORT [id number] NICK GUNDERSON 5. No evidence of pericardial effusion or left ventricular thrombus. TRANSINT:[id number] Voice Confirmation ID: [id number] DOCUMENT ID: [id number] DWAIN PEREA MD at 1127 CC: [id number] DICTATION DATE: 08/07/181718 PHYSICAL THERAPY TEACHER: 08/07/182011 DIS IN 08/14/18 [place] [id number] [place] [id number]
--- NOTE | 2018-08-15 11:27 | CN ---
PATIENT NAME:NICK APONTE MEDICAL RECORD: [id number] : [birth year] LOCATION:[facility] D.2136 ADMIT DATE: 08/07/18 ACCOUNT: [id number] CONSULTING PHYSICIAN: DWAIN DOVE MD REFERRING PHYSICIAN: TONA ISAAC MD DATE OF CONSULTATION: 08/09/2018 ADMITTING DIAGNOSES: 1. Paroxysmal atrial fibrillation. 2. Generalized weakness. 3. Hypertension. HISTORY OF PRESENT ILLNESS: Mr. Aponte has no cardiac history. He is admitted with weakness. He has a history of hypertension, hyperlipidemia. He has been found to go in and out of atrial fibrillation. With any activity, his heart rate jumps up to the 180s with atrial fibrillation. He has no chest pain or chest discomfort with this. PHYSICAL EXAMINATION: GENERAL APPEARANCE: Well-nourished, well-developed, appears stated age. Level of distress, comfortable. PSYCHIATRIC: Mental status, alert, normal affect. Orientation, oriented to time, place and person. EYES: Lids and conjunctiva, noninjected. No discharge, no pallor. ENT: Lips, teeth, gums, normal dentition. Oropharynx, no cyanosis, no pallor. NECK: Carotid arteries, bilateral normal upstroke, no bruits, no thrills. JUGULAR VEINS: No jugular venous pressure or distention. CERVICAL LYMPH NODES: Nontender, nonenlarged. THYROID: Not enlarged. Nontender. No nodules. LUNGS: Respiratory effort, unlabored. CHEST: Normal curvature. No thoracic deformity. No chest wall tenderness. Percussion, resonant. Auscultation, clear. No wheezes, no rales, no rhonchi. CARDIOVASCULAR: Precordial exam, nondisplaced. No heaves or pericardial thrills. Rate and rhythm, regular. Heart sounds, normal S1, normal S2. No S3, no gallop, no rub. Systolic murmur, not heard. Diastolic murmur, not heard. EXTREMITIES: No cyanosis, no edema. Peripheral pulses, full and equal in all extremities, except as noted. No bruits appreciated. ABDOMEN: Soft, nondistended. Normal aorta. No bruit. Nontender. No masses. Liver, nontender, no hepatomegaly. Spleen, nontender, no splenomegaly. MUSCULOSKELETAL: No joint tenderness. No joint swelling. No erythema. NEUROLOGICAL: Normal gait, normal strength, normal tone. SKIN: Warm and dry. OVERALL IMPRESSION: Paroxysmal atrial fibrillation. At this time, we will start him on low-dose sotalol as his heart rate is in the 70s at baseline, 40 mg b.i.d. This should do as good as any agent to prevent the atrial fibrillation. TRANSINT:[id number] Voice Confirmation ID: [id number] DOCUMENT ID: [id number] CONSULT REPORT [id number] NICK APONTE, DWAIN EDMONDS at 1127 CC: [id number] DICTATION DATE: 08/09/18 1218 NOZZLEMAN: 08/09/18 1227 DIS IN 08/14/18 [facility] [address] [place] [address]
== END 2018-08-14 17:33 | DRG 552 ==
LOC: D.ER 08:34 → D.M2 13:39
PROVIDERS: Emergency Medicine; Family Medicine; ADMIT Family Medicine; ATTEND Family Medicine
DX: M51.16 Intervertebral disc disorders with radiculopathy, lumbar region (principal); M48.54XA Collapsed vertebra, not elsewhere classified, thoracic region, initial encounter for fracture; M48.56XA Collapsed vertebra, not elsewhere classified, lumbar region, initial encounter for fracture; R53.1 Weakness; E66.01 Morbid (severe) obesity due to excess calories; Z68.33 Body mass index [BMI] 33.0-33.9, adult; R35.1 Nocturia; M41.86 Other forms of scoliosis, lumbar region; M48.061 Spinal stenosis, lumbar region without neurogenic claudication; R26.2 Difficulty in walking, not elsewhere classified; F03.90 Unspecified dementia, unspecified severity, without behavioral disturbance, psychotic disturbance, mood disturbance, and anxiety; E78.5 Hyperlipidemia, unspecified; D69.6 Thrombocytopenia, unspecified; Z66 Do not resuscitate; I48.0 Paroxysmal atrial fibrillation; I10 Essential (primary) hypertension; R00.1 Bradycardia, unspecified; Z87.891 Personal history of nicotine dependence; Z86.73 Personal history of transient ischemic attack (TIA), and cerebral infarction without residual deficits

== ENCOUNTER 2018-08-14 16:32 | Inpatient (IN) | payer MEDICARE, OTHER ==
[~2018-08-14] VITALS: Ht 190.5 cm; Wt 104.3 kg
[~2018-08-14 16:32] MED LIST changes: +BETAPACE 80 MG80 MG PO; +CO Q-10150 MG PO; +MEDROL DOSE PACK4 MG PO; +METHENAMINE MA500 MG PO; +PEPCID PO; +SYSTANE NIGHTT3.5 GM EACH EYE; +ZYLOPRIM300 MG PO; +[UNRECOGNIZED DRUG - OTHER] PO
--- NOTE | 2018-08-14 19:43 | NUR ---
GREETED PATIENT AND INTRODUCED MYSELF. PATIENT IS LAYING IN BED IN SUPINE POSITION. HAD PATIENT SIGN ADMISSION PAPER WORK. CALL LIGHT IN REACH.
[2018-08-14 23:01] VITALS: BP 128/97; BMI 28.8
--- NOTE | 2018-08-15 02:40 | NUR ---
PATIENT RESTING QUIETLY WITH EYES CLOSED. RESPIRATIONS EVEN. NO S/S OF DISTRESS. SR UP X 2. BED IN LOWEST POSITION. CALL LIGHT IN REACH.
[2018-08-15 07:15] LABS: ANION GAP 11.2 mmol/L (8-16); CALCIUM 8.3 mg/dL (8.5-10.1); CARBON DIOXIDE 28.9 mmol/L (21.0-32.0); CREATININE - SERUM 1.1 mg/dL (0.6-1.3); POTASSIUM - SERUM 4.1 mmol/L (3.5-5.1)
[2018-08-15 07:16] LABS: BASOPHILS 0 % (0-2); EOSINOPHILS 1.7 % (0-7); HEMATOCRIT 45.3 % (42.0-54.0); HEMOGLOBIN 15.6 g/dL (13.5-17.5); IMMATURE GRANULOCYTES 1.6 % (0-5); LYMPHOCYTES 22.8 % (15-50); MCH 30.6 pg (26.0-34.0); MCHC 34.4 g/dL (31.0-37.0); MCV 88.8 fL (80.0-100.0); MONOCYTES 9.2 % (2-11); NEUTROPHILS 64.7 % (40-80); PLATELET COUNT 202 10x3/uL (130-400); RDW 16.1 % (11.5-14.5)
--- NOTE | 2018-08-15 08:00 | NUR ---
PATIENT SITTING UP IN WHEELCHAIR TO EAT BREAKFAST. CALL LIGHT WITHIN REACH. VOICES NO NEEDS. WILL CONTINUE WITH PLAN OF CARE
[2018-08-15 08:09] VITALS: BP 131/83
[2018-08-15 09:35] VITALS: Ht 190.5 cm; Wt 104.3 kg
--- NOTE | 2018-08-15 10:32 | NUR ---
DR. Diana JEAN-BAPTISTE INTO SEE PATIENT. SIGNED DNR ORDER. PUT ON CHART
--- NOTE | 2018-08-15 11:31 | RHP ---
PATIENT: NICK GUNDERSON MEDICAL RECORD: [id number] ACCOUNT: [id number] LOCATION:[facility] : [birth year] ADMISSION DATE: 08/14/18 REHABILITATION HISTORY AND PHYSICAL EXAMINATION POST ADMISSION PHYSICIAN EXAMINATION POST ADMISSION PHYSICAL EXAMINATION AND HISTORY AND PHYSICAL ADMITTING DIAGNOSIS: Disuse myopathy. HISTORY OF PRESENT ILLNESS: The patient is admitted to the inpatient rehab with disuse myopathy. He is an 88-year-old gentleman, who presented to ED with low back pain, leg weakness, inability to walk. 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 Due to his osteoarthritis and knee replacement, he is in a wheelchair for walker for ambulation for several years. He states that 2 days prior to the acute hospital admit, he had increasing trouble with his low back pain, hurting when lying down and sitting, cannot get any relief. Had a CT lumbar spine, which showed mild anterior wedging of T11 through L2 vertebral arteries bodies, which was likely chronic, extensive degenerative changes. He had neurosurgical consult done for a subacute right L5 radiculitis with acute pain. He has been receiving IV steroid therapy and he has had decreased pain. During his acute hospital stay, he was found to be going in and out of uncontrolled AFib, which was new onset and with any activity, his heart rate jumped up to the 170s and 180s. He has been on telemetry for consistent monitoring. He has had medication adjustments, receiving some IV steroids. He has got proximal muscle weakness, deconditioning, debility, increased confusion, impaired mobility, acute pain. He is a high fall risk and has self-care deficits. These are all barriers to discharge back to [facility] at this time. He lives at [facility], has been there since May of 2018. He was moderately independent with the use of rolling walker and wheelchair for his mobility. He was independent to moderately independent with ADLs. He and his significant other plan for him to return back home to [facility] at his prior level of functioning or better if possible. Comorbidities in this patient include paroxysmal atrial fibrillation, hypertension, generalized weakness, herniated lumbar intervertebral discs, atrial fib, thrombocytopenia, anemia, bradycardia, dementia, acute confusion, mental status changes, and proximal muscle weakness. PAST MEDICAL HISTORY: Significant for osteoarthritis, morbid obesity, essential hypertension, hyperlipidemia, BPH, gout, UTI in the past, kidney stones, coronary artery disease, cataracts, cognitive impairment, edema, shortness of breath, sleep apnea. PAST SURGICAL HISTORY: Includes right carpal tunnel release. He has had rods placed in his left foot. He has had a cataract removal bilaterally, history of heart cath with failed PTCA, tonsillectomy and adenoidectomy, bilateral knee replacements, and cystoscopy. ALLERGIES: NORVASC, COZAAR, TRAMADOL, PRAVACHOL, AND SIMVASTATIN. CURRENT MEDICATIONS: He is on sotalol or Betapace 40 mg b.i.d., terazosin 10 mg at bedtime. He is on Dyazide 1 tab daily. He is on artificial tears as needed. He is on Pepcid 20 mg b.i.d. He is on a tapering dose of Medrol. He is on beta carotene daily. Allopurinol, he is on 300 mg daily. He is on Ocuvite daily also. HISTORY AND PHYSICAL [id number] NICK GUNDERSON HABITS: No current alcohol or tobacco use. FAMILY HISTORY: Noncontributory. SOCIAL HISTORY: The patient once again hopes to return back to [facility] with his significant other. REVIEW OF SYSTEMS: GENERAL: Does complain of weakness and fatigue. HEENT: Denies cold, cough, or congestion. CARDIOVASCULAR: Denies any chest pain. LUNGS: Does complain of shortness of breath, especially with ambulation. PHYSICAL EXAMINATION: VITAL SIGNS: Stable. He is afebrile. GENERAL: A morbidly obese gentleman, in no acute distress, alert upon exam. HEENT: Normocephalic and atraumatic. Mucosa appears normal. TMs are shiny and mobile at this time. NECK: Supple, with no lymphadenopathy. LUNGS: Clear in the upper thao. HEART: Has a regular rate and rhythm. No murmurs, rubs, or gallops. ABDOMEN: Benign. EXTREMITIES: No clubbing, cyanosis, or edema. NEUROLOGIC: He does have noted proximal muscle weakness and some mild confusion. LABORATORY DATA: His white count was 7000, his H&H were 15 and 45, and platelet count was noted to be 202. His sodium is 135, potassium 4.1, BUN and creatinine of 30 and 1.1, blood sugar is noted to be 92. ASSESSMENT: This is an 88-year-old gentleman admitted to the rehab with a working diagnosis of disuse myopathy. The patient has potential to make improvement. We will institute the following multidisciplinary therapies including, but not limited to, physical, occupational, respiratory, speech, nutritional services, prosthetics, and orthotics. Given his complex medical condition and risks for more complications, rehabilitation services cannot be provided at a lower level of care such as a skilled nurse facility. PLAN: 1. Admit to [facility] for inpatient therapy to include the following disciplines; A. Physical therapy to improve gait, all transfer skills, and bed mobility to modified independent level. B. Occupational therapy to modified independent level. C. Case management to assist with discharge planning and placement options. D. Nutrition to assist with nutritional needs. E. Rehabilitation nursing to assist in monitoring the patient's underlying medical conditions and to assist with any type of bowel or bladder management. 2. The patient's current medications and medical care will be continued. 3. The patient will be placed on standard fall precautions. 4. The patient's estimated length of stay is approximately 7-10 days. 5. We will discuss the patient during care team staff meeting this week. TRANSINT:[id number] Voice Confirmation ID: [id number] DOCUMENT ID: [id number] HISTORY AND PHYSICAL [id number] NICK GUNDERSON notes whether there has been none or any medical/functional change since admission: - NO CHANGE SINCE PRESCREEN. ANN attests patient continues to be appropriate for IRF: - CONTINUES TO BE APPROPRIATE. JEFF JEAN-BAPTISTE MD at 1131 CC: [id number] DICTATION DATE: 08/15/18 0847 AXMINSTER WEAVER: 08/15/18 1006 ADM IN [place] [id number] [place] [id number]
--- NOTE | 2018-08-15 14:42 | NUR ---
PATIENT TURNED BASIN OPERATOR LIGHT TO USE BATHROOM. MODERATE ASST OF ONE FROM WHEELCHAIR TO TOILET
--- NOTE | 2018-08-15 17:34 | NUR ---
I have reviewed this patient and I concur with the Shift Assessment completed by the Licensed Practical Nurse today this shift.
--- NOTE | 2018-08-15 17:45 | NUR ---
VISITING PATIENT IN ROOM. PATIENT VOICES NO NEEDS AT THIS TIME.
[2018-08-15 19:00] VITALS: BP 109/78
--- NOTE | 2018-08-15 19:27 | NUR ---
PT RESTING QUIETLY. CALL LIGHT IN REACH. EYES CLOSED. BED IN LOW SIDE RAILS X2. RESP EVEN AND UNLABORED. NO SIGNS OF DISTRESS OR PAIN. WILL CONTINUE TO MONITOR.
--- NOTE | 2018-08-15 23:10 | NUR ---
PT LYING IN BED. CALL LIGHT IN REACH. DENIES NEEDS OR PAIN AT THIS TIME. MEDS GIVEN WHOLE. RESP EVEN AND UNLABORED. LUNGS CLEAR WITH SOME DIMINISH SOUNDS. BOWEL ACTIVE X4. A/O X3. CONFUSED AT TIMES AND FORGETFUL. BED ALARM ON. WCTM
--- NOTE | 2018-08-16 02:36 | NUR ---
I have reviewed this patient and I concur with the Shift Assessment completed by the Licensed Practical Nurse today this shift.
--- NOTE | 2018-08-16 04:20 | NUR ---
PT WITNESSED TRYING TO GET OUT OF BED. PT STATED HE WAS GOING TO THE BATHROOM. THIS NURSE ASKED IF HE NEEDED TO GO NUMBER ONE OR TWO. PT STATED JUST PEE. THIS NURSE ENCOURAGED PT TO JUST USE URINAL. 450 EMPTIED OUT OF URINAL. BED ALARM. CALL LIGHT IN REACH. WCTM
[2018-08-16 08:00] VITALS: BP 126/88
--- NOTE | 2018-08-16 08:04 | NUR ---
PATIENT IS SITTING UP IN WHEELCHAIR AT BEDSIDE TO EAT BREAKFAST. CALL LIGHT WITHIN REACH. VOICES NO NEEDS AT THIS TIME. WILL CONTINUE WITH PLAN OF CARE
--- NOTE | 2018-08-16 09:52 | NUR ---
NURSE ASST HELPED WITH GETTING PATIENT DRESSED. PATIENT IS A MIN ASST WITH DRESSING.
--- NOTE | 2018-08-16 12:43 | NUR ---
I have reviewed this patient and I concur with the Shift Assessment completed by the Licensed Practical Nurse today this shift.
--- NOTE | 2018-08-16 13:43 | NUR ---
PATIENT REAMINS SITTING UP IN WHEELCHAIR ARFTER LUNCH AND THERAPY
--- NOTE | 2018-08-16 19:37 | NUR ---
PT SITTING UP IN BED. CALL LIGHT IN REACH. DENIES NEEDS OR PAIN AT THIS TIME. BED IN LOW SIDE RAILS X2. RESP EVEN AND UNLABORED. A/O X3 GETS MORE CONFUSED AT NIGHT. WILL CONTINUE TO MONITOR. BED ALARM ON
[2018-08-16 20:53] VITALS: BP 125/78
--- NOTE | 2018-08-16 22:17 | NUR ---
PATIENT SLEEPING QUIETLY. WILL CONTINUE TO MONITOR.
--- NOTE | 2018-08-17 02:06 | NUR ---
RESTING IN BED WITH EYES CLOSED.
--- NOTE | 2018-08-17 04:50 | NUR ---
RESTING IN BED WITH EYES CLOSED. USING URINAL PRN.
--- NOTE | 2018-08-17 07:57 | NUR ---
PATIENT SITTING UP IN BED TO EAT BREAKFAST. ALERT/ORIENT. CALL LIGTH WITHIN REACH. WILL CONTINUE WITH PLAN OF CARE
[2018-08-17 08:00] VITALS: BP 117/86
--- NOTE | 2018-08-17 13:17 | NUR ---
IN ROOM, VISITING. PATIENT SITTING UP IN WHEELCHAIR. VOICES NO NEEDS AT THIS TIME
--- NOTE | 2018-08-17 14:32 | NUR ---
PATIENT HELPED INTO BATHROOM. MODERATE AMOUNT OF HELP FROM WHEELCHAIR TO TOILET. PATIENT NEEDS HELP WITH GHISLA[facility] C[facility]
--- NOTE | 2018-08-17 17:52 | NUR ---
I have reviewed this patient and I concur with the Shift Assessment completed by the Licensed Practical Nurse today this shift.
[2018-08-17 19:28] VITALS: BP 115/81
--- NOTE | 2018-08-17 19:28 | NUR ---
GREETED PATIENT AND INTRODUCED MYSELF. PATIENT LAYING IN BED IN SUPINE POSITION. DENIES ANY NEEDS AT THIS TIME. CALL LIGHT IN REACH. VITAL SIGNS OBTAINED.
--- NOTE | 2018-08-18 02:04 | NUR ---
PATIENT ASSISTED TO BATHROOM USING WHEELCHAIR. WET BED LINENS CHANGED. PATIENT BACK TO BED AND REPOSITIONED FOR COMFORT. CALL LIGHT IN REACH.
[2018-08-18 06:45] LABS: BASOPHILS 0 % (0-2); EOSINOPHILS 0.7 % (0-7); HEMATOCRIT 42.1 % (42.0-54.0); HEMOGLOBIN 14.4 g/dL (13.5-17.5); IMMATURE GRANULOCYTES 0.9 % (0-5); LYMPHOCYTES 15.2 % (15-50); MCH 30.5 pg (26.0-34.0); MCHC 34.2 g/dL (31.0-37.0); MCV 89.2 fL (80.0-100.0); MONOCYTES 10.4 % (2-11); NEUTROPHILS 72.8 % (40-80); PLATELET COUNT 206 10x3/uL (130-400); RBC 4.72 10x6/uL (4.20-6.10); WBC 8.2 10x3/uL (4.8-10.8)
[2018-08-18 07:04] LABS: ANION GAP 9.4 mmol/L (8-16); CALCIUM 8.4 mg/dL (8.5-10.1); CARBON DIOXIDE 30.6 mmol/L (21.0-32.0); CREATININE - SERUM 1.1 mg/dL (0.6-1.3)
--- NOTE | 2018-08-18 07:34 | NUR ---
ALERT AND ORIENTED. NO DISTRESS NOTED. CL IN REACH.
[2018-08-18 08:00] VITALS: BP 119/81
--- NOTE | 2018-08-18 12:07 | NUR ---
FAMILY AT BS. NO C/O PAIN AT THIS TIME.
--- NOTE | 2018-08-18 16:38 | NUR ---
PATIENT ADMITTED TO REHAB FROM ACUTE FLOOR. DR. ISAAC IS PATIENT PCP. DME AT HOME IS A ROLLING WALKER WITH A SEAT. DISCHARGE PLANS ARE FOR PATIENT TO RETURN HOME WITH HIS SPOUSE. WILL CONTINUE TO FOLLOW WITH PATIENT
--- NOTE | 2018-08-18 16:51 | NUR ---
NO CHANGE IN ASSESSMENT. NO C/O PAIN. CL IN REACH.
[2018-08-18 19:00] VITALS: BP 115/77
--- NOTE | 2018-08-18 22:02 | NUR ---
PT UP ON SIDE OF BED, REMINDED PT TO USE CALL LIGHT WHEN NEEDING TO GET OUT OF BED, EYES OPEN, BED LOWEST POSITION, BREATH EVEN AND UNLABORED, NO NEEDS NOTED, FLUIDS AND CALL LIGHT WITHIN REACH, ALARMS TO LET NURSES KNOW PT IS OUT OF BED IN PLACE AND WORKING, PT IS FALL RISK.
--- NOTE | 2018-08-18 23:46 | NUR ---
PT IN BED, LOWEST POSITION, EYES CLOSED, AROUSES EASILY TO VOICE, NO IMMEDIATE NEEDS NOTED, FLUIDS AND CALL LIGHT WITHIN REACH
--- NOTE | 2018-08-19 07:18 | NUR ---
RESTING WO DISTRESS. CL IN REACH. RESP EVEN AND UNLABORED.
[2018-08-19 08:00] VITALS: BP 124/98
--- NOTE | 2018-08-19 10:20 | NUR ---
SHOWER GIVEN THIS AM PER NURSING. PARTICIPATING IN THERAPY AT THIS TIME.
[2018-08-19 20:00] VITALS: BP 121/92
--- NOTE | 2018-08-20 03:40 | NUR ---
PATIENT EYES CLOSED. RESPIRATIONS 18 & EVEN. BED LOW. ALARM ON. CALL LIGHT WITHIN REACH. WILL CONTINUE TO MONITOR.
[2018-08-20 07:02] LABS: BASOPHILS 0 % (0-2); EOSINOPHILS 1.2 % (0-7); HEMATOCRIT 40.1 % (42.0-54.0); HEMOGLOBIN 13.6 g/dL (13.5-17.5); IMMATURE GRANULOCYTES 0.7 % (0-5); LYMPHOCYTES 13.6 % (15-50); MCH 30.4 pg (26.0-34.0); MCHC 33.9 g/dL (31.0-37.0); MCV 89.7 fL (80.0-100.0); MEAN PLATELET VOLUME 12.2 fL (7.4-10.4); MONOCYTES 10.9 % (2-11); NEUTROPHILS 73.6 % (40-80); PLATELET COUNT 186 10x3/uL (130-400); RBC 4.47 10x6/uL (4.20-6.10); RDW 16.3 % (11.5-14.5); WBC 8.2 10x3/uL (4.8-10.8)
--- NOTE | 2018-08-20 07:08 | NUR ---
RESP EVEN AND UNLABAORED. ALERT AND ORIENTED. NO C/O PAIN.
[2018-08-20 07:22] LABS: ANION GAP 10.4 mmol/L (8-16); CALCIUM 8.4 mg/dL (8.5-10.1); CARBON DIOXIDE 30.5 mmol/L (21.0-32.0); CREATININE - SERUM 1.1 mg/dL (0.6-1.3); POTASSIUM - SERUM 3.9 mmol/L (3.5-5.1)
[2018-08-20 08:10] VITALS: BP 133/99
--- NOTE | 2018-08-20 13:27 | NUR ---
SITTING IN WC. AT BS. NO C/O PAIN. WAS HERE FOR TEAM CONFERENCE.
--- NOTE | 2018-08-20 15:21 | NUR ---
CARE TEAM MEETING: PATIENT AND FAMILY ATTENDED MEETING. TENATIVE DISCHARGE DATE IS 08/27/18 AND WILL RETURN TO HIS HOME AT [facility] WILL CONTINUE TO FOLLOW WITH PATIENT.
--- NOTE | 2018-08-20 17:02 | NUR ---
NO CHANGE IN ASSESSMENT. NO C/O PAIN. CL IN REACH.
[2018-08-20 19:00] VITALS: BP 113/85
--- NOTE | 2018-08-20 19:50 | NUR ---
GREETED PATIENT AND INTRODUCED MYSELF. PATIENT IS LAYING IN BED WATCHING TV AND DENIES ANY NEEDS AT THIS TIME. CALL LIGHT IN REACH.
[2018-08-21 08:00] VITALS: BP 114/86
--- NOTE | 2018-08-21 08:07 | NUR ---
PT RESTING IN BED WITH EYES OPEN CALL LIGHT IN REACH NO PROBLEMS WILL MONITER
--- NOTE | 2018-08-21 12:17 | NUR ---
Nutrition Follow Up: Chart reviewed. Pt is eating 97% meal avg on a regular diet. +BM 08/20/18. Meds and labs reviewed. Pt continues at low nutritional risk. RD following.
--- NOTE | 2018-08-21 17:00 | NUR ---
EATING SUPPER.CL IN REACH.
--- NOTE | 2018-08-21 19:20 | NUR ---
PT SITTING UP IN BED WATCHING TV. CALL LIGHT IN REACH. DENIES NEEDS OR PAIN AT THIS TIME. BED IN LOW SIDE RAILS X2. RESP EVEN AND UNLABORED. WILL CONTINUE TO MONITOR.
[2018-08-21 19:30] VITALS: BP 105/70
--- NOTE | 2018-08-21 23:43 | NUR ---
PT SITTING UP IN BED. CALL LIGHT IN REACH. DENIES NEEDS OR PAIN. BED IN LOW SIDE RAILS X2. BED ALARM ON. CAN BE CONFUSED OR FORGETFUL AT TIMES. A/O X3. LUNGS CLEAR. BOWEL ACTIVE X4. RESP EVEN AND UNLABORED. PM MEDS GIVEN NO PROBLEM. VITALS WNL. WILL CONTINUE TO MONITOR.
--- NOTE | 2018-08-22 00:40 | NUR ---
CALLED MEDICAL HEALTH RESEARCHER STATION AND PT WAS RUNNING 103 UNCON. AFIB. WHICH IS NOT THE PT NORMAL. ASSESSED PT BP WAS 126/81, PULSE 84. NO SIGNS OF DISTRESS. DENIES CHEST PAIN OR SOB. WCTM
--- NOTE | 2018-08-22 01:29 | NUR ---
PUBLIC IMPROVEMENT INSPECTOR CALLED NURSES DESK STATING PT HAD 15 PVC'S IN A ROW. CHECKED ON PT. PT WAS SNORING WITH EYES CLOSED. NO SIGNS OF DISTRESS NOTED. NELSON.
--- NOTE | 2018-08-22 02:42 | NUR ---
RESTING IN BED WITH EYES CLOSED AND RESPIRATIONS UNLABORED. NO DISTRESS NOTED.
--- NOTE | 2018-08-22 05:00 | NUR ---
PT RESTING QUIETLY. CALL LIGHT IN REACH. NO DISTRESS NOTED. BED ALARM ON. EMPTIED URINAL WITH 800CC. TM
[2018-08-22 07:26] LABS: BASOPHILS 0.1 % (0-2); EOSINOPHILS 1.8 % (0-7); HEMATOCRIT 39.3 % (42.0-54.0); HEMOGLOBIN 13.4 g/dL (13.5-17.5); IMMATURE GRANULOCYTES 0.5 % (0-5); MCH 30.8 pg (26.0-34.0); MCHC 34.1 g/dL (31.0-37.0); MCV 90.3 fL (80.0-100.0); MONOCYTES 14.1 % (2-11); NEUTROPHILS 68.5 % (40-80); PLATELET COUNT 156 10x3/uL (130-400); RBC 4.35 10x6/uL (4.20-6.10); RDW 16.3 % (11.5-14.5); WBC 7.7 10x3/uL (4.8-10.8)
[2018-08-22 07:38] LABS: CALC OSMOLALITY 283 mosm/kg (275-300); CALCIUM 8.7 mg/dL (8.5-10.1); CHLORIDE - SERUM 102 mmol/L (98-107); GLUCOSE 98 mg/dL (74-106); POTASSIUM - SERUM 3.7 mmol/L (3.5-5.1); SODIUM 139 mmol/L (136-145); UREA NITROGEN 29 mg/dL (7-18); eGFR NON AFRICAN AMERICAN 75 mL/min (90-120)
[2018-08-22 07:55] VITALS: BP 128/78
--- NOTE | 2018-08-22 08:35 | NUR ---
PT RESTING IN BED WITH EYES OPEN CALL LIGHT IN REACH NO PROBLEMS WILL MONITERS
--- NOTE | 2018-08-22 19:30 | NUR ---
PT SITTING UP IN BED. VISITOR IN ROOM. DENIES NEEDS OR PAIN AT THIS TIME. BED IN LOW SIDE RAILS X2. BED ALARM ON. STEAM FITTER ON. LUNGS CLEAR. BOWEL ACTIVE X4. A/O X4. RESP EVEN AND UNLABORED. ASSESSMENT COMPLETED AT THIS TIME. WILL CONTINUE TO MONITOR.
[2018-08-22 20:47] VITALS: BP 117/68
--- NOTE | 2018-08-22 22:20 | NUR ---
PM MEDS GIVEN. PT DENIES NEEDS. CALL LIGHT IN REACH. LIGHTS TURNED OUT. URINAL WITHIN REACH. TM
--- NOTE | 2018-08-23 02:37 | NUR ---
RESTING IN BED WITH EYES CLOSED AND RESPIRATIONS UNLABORED. NO DISTRESS NOTED. CALL LIGHT IN REACH.
--- NOTE | 2018-08-23 04:35 | NUR ---
PT RESTING QUIETLY. CALL LIGHT IN REACH. NO DISTRESS NOTED. WCTM
--- NOTE | 2018-08-23 08:00 | NUR ---
PATIENT ALERT/WITH SOME CONFUSION/FORGETFULLNESS NOTED. BED ALARM ON. SITTING UP AT THE SIDE OF THE BED TO EAT BREAKFAST. CALL LIGHT WITHIN REACH. VOICES NO NEEDS AT THIS TIME. WILL CONTINUE WITH PLAN OF CARE.
[2018-08-23 08:08] VITALS: BP 112/67
--- NOTE | 2018-08-23 10:09 | NUR ---
NURSE ASST GAVE PATIENT A SHOWER. AFTER SHOWER PATIENT STATED HE DID NOT WANT A SHOWER, THAT THE NURSE ASST ALMOST DROWNED ME. THIS NURSE ASKED IF THE PATIENT DOES NOT WASH HES' HEAD AT HOME. PATIENT SAID I DO, I JUST DIDN'T WANT A SHOWER. NURSE ASST STATED THAT PATIENT DID NOT REFUSE OR STATE THAT HE DID NOT WANT A SHOWER. PATIENT CAN BE CONFUSED AND FORGETFULL AT TIMES
--- NOTE | 2018-08-23 14:42 | NUR ---
CHANGE IN PATIENT MENTAL STATUS. DR Diana JEAN-BAPTISTE INTO SEE PATIENT NEW ORDERS RECEIVED FOR A CT HEAD WITHOUT CONTRAST.
--- NOTE | 2018-08-23 17:44 | NUR ---
PATIENT TAKEN BY STAFF TO HAVE A CT OF HEAD.
--- NOTE | 2018-08-23 19:34 | NUR ---
PT LYING IN BED WATCHING TV. CALL LIGHT IN REACH. PT DENIED NEEDS OR PAIN AT THIS TIME. A/O X4. BED IN LOW. SIDE RAILS X2. BED ALARM ON. URINAL AT BEDSIDE. RESP EVEN AND UNLABORED. WILL CONTINUE TO MONITOR.
[2018-08-23 20:28] VITALS: BP 107/64
--- NOTE | 2018-08-23 21:55 | NUR ---
PT SITTING UP ON SIDE OF BED USING URINAL. DENIES NEEDS OR PAIN AT THIS TIME. BED IN LOW. BED ALARM ON. LUNGS CLEAR. BOWEL ACTIVE X4. A/O X3. NO DISTRESS NOTED. ASSISTED WITH GETTING BACK IN BED. WCTM. CALL LIGHT IN REACH
--- NOTE | 2018-08-24 03:16 | NUR ---
PT SITTING UP ON SIDE OF BED USING URINAL. BED ALARM SOUNDED. DENIES NEEDS. CL IN REACH. WCTM
--- NOTE | 2018-08-24 05:36 | NUR ---
RESTING IN BED WITH RESPIRATIONS UNLABORED. NO DISTRESS NOTED. CALL LIGHT IN REACH.
[2018-08-24 08:31] VITALS: BP 106/73
--- NOTE | 2018-08-24 10:42 | NUR ---
THE PATIENT APPEARED TO BE SLEEPING BUT EASILY AWOKE WHEN STAFF ENTERED HER ROOM. BED IS IN THE LOW POSITION WITH SIDERAILS X3 AND CALL LIGHT WITHIN REACH. THE PATIENT WAS EDUCATED ON AND DEMONSTRATES APPROPRIATE USE OF A CALL LIGHT. THE PATIENT APPEARS COMFORTABLE WITH NO QUESTIONS OR COCNERNS AT THIS TIME.
[2018-08-24 18:44] VITALS: BP 124/88
--- NOTE | 2018-08-24 19:15 | NUR ---
EMPITIED 300ML URINE FROM URINAL.CALL LIGHT IN REACH.
--- NOTE | 2018-08-24 22:03 | NUR ---
PATIENT RESTING QUIETLY IN BED WATCHING TV. WILL CONTINUE TO MONITOR.
--- NOTE | 2018-08-25 02:18 | NUR ---
REST IN BED, CALL LIGHT IN REACH.
--- NOTE | 2018-08-25 04:42 | NUR ---
REST QUIETLY IN BED, CALL LIGHT IN REACH.
[2018-08-25 07:37] LABS: BASOPHILS 0.1 % (0-2); HEMATOCRIT 39.7 % (42.0-54.0); HEMOGLOBIN 13.3 g/dL (13.5-17.5); IMMATURE GRANULOCYTES 0.6 % (0-5); LYMPHOCYTES 12.7 % (15-50); MCH 30.7 pg (26.0-34.0); MCHC 33.5 g/dL (31.0-37.0); MCV 91.7 fL (80.0-100.0); MEAN PLATELET VOLUME 12.3 fL (7.4-10.4); MONOCYTES 11.8 % (2-11); NEUTROPHILS 72.8 % (40-80); PLATELET COUNT 156 10x3/uL (130-400); RBC 4.33 10x6/uL (4.20-6.10); RDW 16.7 % (11.5-14.5); WBC 7.8 10x3/uL (4.8-10.8)
[2018-08-25 07:38] LABS: ANION GAP 13.4 mmol/L (8-16); CALCIUM 8.6 mg/dL (8.5-10.1); CARBON DIOXIDE 27.6 mmol/L (21.0-32.0); CREATININE - SERUM 1.1 mg/dL (0.6-1.3)
[2018-08-25 08:00] VITALS: BP 131/84
--- NOTE | 2018-08-25 08:59 | NUR ---
ADMININSTERED MORNING MEDS WHOLE WITHOUT DIFFICULTY. DENIES ANY NEEDS OR PAIN. IN THERAPY GYM PARTICIPATING IN PT WITH MARGO. WILL CONTINUE TO MONITOR
--- NOTE | 2018-08-25 14:09 | NUR ---
IN THERAPY GYM PARTICIPATING IN OT. NO SIGNS OF DISTRESS NOTED.
[2018-08-25 14:11] LABS: APPEARANCE CLEAR (CLEAR); BILIRUBIN NEGATIVE (NEGATIVE); COLOR YELLOW (YELLOW); GLUCOSE NEGATIVE (NEGATIVE); KETONE NEGATIVE (NEGATIVE); NITRITE NEGATIVE (NEGATIVE); PROTEIN NEGATIVE (NEGATIVE); SPECIFIC GRAVITY 1.015 (1.005-1.020)
[2018-08-25 20:51] VITALS: BP 107/65
--- NOTE | 2018-08-25 22:51 | NUR ---
REC'D. IN BED VISITING WITH DTR.DTR STATES HAS BEEN HAVING MUSCLE SPASMS IN RIGHT FEMORAL AREA WAS WORSE EARLIER TODAY BUT BETTER NOW STATES COMES AND GOES WILL CONTINUE TO MONITOR FOR ANY CHGES AND FOLLOW CURRENT PLAN OF CARE.
--- NOTE | 2018-08-26 02:21 | NUR ---
RESTING IN BED WITH RESPIRATIONS UNLABORED. NO DISTRESS NOTED. CALL LIGHT IN REACH.
--- NOTE | 2018-08-26 07:10 | NUR ---
RECEIVED REPORT. SITTING UP ON SIDE OF BED ALERT AND ORIENTED X2. REORIENTED TO TIME AND PLACE. NO SIGNS OF DISTRESS NOTED. CALL LIGHT WITHIN REACH, FALL PRECAUTIONS IN PLACE. WILL CONTINUE TO MONITOR
[2018-08-26 08:00] VITALS: BP 128/91
--- NOTE | 2018-08-26 13:37 | NUR ---
AFTER SPEAKING WITH PATIENT , LORENA FROM [facility] IT IS RECCOMMENED THAT PATIENT DISCHARGE TO A SNF. A REFERRAL HAS BEEN FAXED TO [facility] FOR POSSIBLE ADMISSION.WILL CONTINUE TO FOLLOW WITH PATIENT
--- NOTE | 2018-08-26 13:42 | NUR ---
SITTING UP ON SIDE OF BED VISITING WITH FAMILY. DENIES ANY NEEDS OR PAIN. NO SIGNS OF DISTRESS NOTED. WILL CONTINUE TO MONITOR
--- NOTE | 2018-08-26 18:48 | NUR ---
LYING IN BED SUPINE EYES CLOSED RESTING. NO SIGNS OF DISTRESS NOTED.
[2018-08-26 19:00] VITALS: BP 122/68
--- NOTE | 2018-08-26 20:00 | NUR ---
PATIENT RECEIVED SITTING UP IN BED WATCHING TV. PATIENT ASSESSMENT & VITAL SIGNS DONE. NO C/O PAIN OR DISTRESS. PATIENT BED LOW. ALARM ON. CALL LIGHT WITHIN REACH. WILL CONTINUE TO MONITOR.
--- NOTE | 2018-08-27 03:00 | NUR ---
PATIENT EYES CLOSED. RESPIRATIONS 18 & EVEN. BED LOW. ALARM ON. CALL LIGHT WITHIN REACH. WILL CONTINUE TO MONITOR.
--- NOTE | 2018-08-27 03:54 | NUR ---
PT IN BED LOWEST POSITION, EYES CLOSED OPENS EASILY TO VOICE, RESPIRATIONS SLOW AND EVEN, NO NEEDS NOTED, FLUIDS AND CALL LIGHT WITHIN REACH
[2018-08-27 07:45] LABS: CALC OSMOLALITY 281 mosm/kg (275-300); CALCIUM 8.5 mg/dL (8.5-10.1); CARBON DIOXIDE 26.6 mmol/L (21.0-32.0); CHLORIDE - SERUM 101 mmol/L (98-107); GLUCOSE 97 mg/dL (74-106); POTASSIUM - SERUM 4.3 mmol/L (3.5-5.1); SODIUM 139 mmol/L (136-145); UREA NITROGEN 25 mg/dL (7-18); eGFR NON AFRICAN AMERICAN 75 mL/min (90-120)
[2018-08-27 07:46] LABS: HEMATOCRIT 38.9 % (42.0-54.0); HEMOGLOBIN 12.9 g/dL (13.5-17.5); MCH 30.6 pg (26.0-34.0); MCHC 33.2 g/dL (31.0-37.0); MCV 92.2 fL (80.0-100.0); MEAN PLATELET VOLUME 12.8 fL (7.4-10.4); PLATELET COUNT 128 10x3/uL (130-400); RBC 4.22 10x6/uL (4.20-6.10); RDW 16.5 % (11.5-14.5)
[2018-08-27 07:49] LABS: WBC 5.7 10x3/uL (4.8-10.8)
[2018-08-27 08:00] VITALS: BP 127/78
--- NOTE | 2018-08-27 08:00 | NUR ---
PATIENT SITTING UP IN WHEELCHAIR TO EAT BREAKFAST. CALL LIGHT WITHIN REACH. VOICES NO NEEDS. PLAN TO DISCHARGE FROM HOSPITAL TODAY. MARJAN BONE UMANZOR
[2018-08-27 09:32] LABS: BASOPHILS 1 % (0-2); EOSINOPHILS 1 % (0-7); LYMPHOCYTES 17 % (15-50); MONOCYTES 6 % (2-11); NEUTROPHILS 73 % (40-80); PLATELET ESTIMATE NORMAL
[2018-08-27 09:33] LABS: ACANTHOCYTES OCC; ANISOCYTOSIS OCC
--- NOTE | 2018-08-27 10:08 | NUR ---
PAIENT REMAIN SITTING UP IN WHEELCHAIR AT BEDSIDE WATCHING T.V. CALL LIGHT WITHIN REACH. VOICES NO NEEDS AT THIS TIME.
--- NOTE | 2018-08-27 12:00 | NUR ---
DENIES NEEDS.CL IN REACH.
--- NOTE | 2018-08-27 13:16 | NUR ---
THIS NURSE TALKED TO DESHAWN RESENDIZ. STILL WAITING TO HERE FROM [place] FOR PATIENT DISCHARGE
--- NOTE | 2018-08-27 16:21 | NUR ---
PATIENT HAS BEEN ACCEPTED TO [facility] AND WILL DISCHARGE THERE 08/28/18 VIA [facility]
--- NOTE | 2018-08-27 16:49 | NUR ---
PATIENT BEING DISCHARGE TOMORROW TO [facility].
[2018-08-27 19:00] VITALS: BP 137/77
--- NOTE | 2018-08-27 19:00 | NUR ---
PT IN BED LOW POSITION, WATCHING TV. RESPIRATIONS EVEN AND UNLABORED, NO NEEDS NOTED, FLUIDS AND CALL LIGHT WITHIN REACH
[2018-08-28 08:00] VITALS: BP 118/70
--- NOTE | 2018-08-28 08:00 | NUR ---
SITTING UP ON SIDE OF BED FOR BREAKFAST. IS ALERT AND COOPERATIVE. DENIES PAIN AT PRESENT. CALL LIGHT IN REACH
--- NOTE | 2018-08-28 09:38 | NUR ---
PATIENT DISCHARGING TO [facility] VIA [facility]. AN APPOINTMENT WITH DR. ISAAC WILL BE MADE AT TIME OF DISCHARGE FROM FACILITY. PATIENT CHOICE FORM AND [facility] FORM SIGNED, COPY GIVEN TO PATIENT AND FILED IN CHART. DISCHARGE INSTRUCTIONS FAXED TO PCP, SNF AND REVIEWED WITH PATIENT AND POA.
--- NOTE | 2018-08-28 10:50 | NUR ---
DC TO [facility] WITH ALL PERSONAL BELONGINGS. REPORT CALLED TO TERRY ROWLEY. LEFT FLOOR IN AND GIRLFRIEND WITH HIM.
== END 2018-08-28 15:46 | DRG 93 ==
LOC: D.REHAB 16:32
PROVIDERS: ADMIT Emergency Medicine; ATTEND Emergency Medicine
DX: G72.89 Other specified myopathies (principal); I48.0 Paroxysmal atrial fibrillation; I10 Essential (primary) hypertension; R53.1 Weakness; D69.6 Thrombocytopenia, unspecified; D64.9 Anemia, unspecified; F03.90 Unspecified dementia, unspecified severity, without behavioral disturbance, psychotic disturbance, mood disturbance, and anxiety; M62.81 Muscle weakness (generalized); R41.0 Disorientation, unspecified; R53.81 Other malaise; M51.26 Other intervertebral disc displacement, lumbar region; R48.8 Other symbolic dysfunctions; R00.1 Bradycardia, unspecified